=== PATIENT | female | born 1965 | race Caucasian/White ===

== ENCOUNTER 2025-01-23 13:13 | Emergency (ER) | payer OTHER, SELFPAY ==
--- NOTE | ~2025-01-23 | XR_ITS ---
EXAM/ PROCEDURE: XR hip LT 2V w AP pelvis - 01/23/2025 13:26 CDT HISTORY: 59 years old Female with jumped off 5ft ladder, landed on left hip- pain COMPARISON: None available TECHNIQUE: Three view(s) FINDINGS/ IMPRESSION: There are no fractures or dislocations.Joint space narrowing, subchondral sclerosis, subchondral cyst formation and osteophyte formation, compatible with mild osteoarthritis. Reviewed, dictated and finalized at location A.
--- OUTSIDE RECORDS SUMMARY | 2025-01-23 13:27 | XMS_ITS | Encounter Summary ---
Author Organization [facility] Healthcare Address [address] [place] [address] Care Team Providers Care Fountain Helper Name Role Phone Celeste Conde PT Unavailable Unavailabl e No, Physician Primary Care Provider [phone] Encounter Details Date Type Department Care Team (Late st Contact Info) Description 01/22/2025 Telephone [facility] Orthopedics and Sports Medicine 4 [facility] [address] [place] [address] Steve Tapia MD [address] [place] [address] [address] [place] [address] Social History Tobacco Use Types Packs/Day Years Used Date Smoking Tobacco: Former Cigarettes Smokeless Tobacco: Never Alcohol Use Standard Drinks/Week Comments Yes 0 (1 standard drink = 0.6 oz pur e alcohol) AUDIT-C Answer Date Recorded Q1: How often do you have a drink containing alc ohol? 2-3 times a week 10/01/2021 Q2: How many drinks containi ng alcohol do you have on a typical day when you are drinking? 1 or 2 10/01/2021 Q3: How often do you have si x or more drinks on one occasion? 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 States she had fallen and did not want to go to ED or Urgent Care. Called back adivising it would be February before we could get her in for a [place] appt and suggest she at least go to the Urgent Care for xrays and let us know when those had been done to review documented in this encounter Plan of Treatment Not on file documented as of this encounter Visit Diagnoses Not on filedocumented in this encounter Care Teams Fountain Helper Relationship Specialty Start Date End Date No, Physician PCP - General 11/06/24 Celeste Conde, PT Physical Therapist Physical Therapy 11/17/21 documented as of this encounter
--- OUTSIDE RECORDS SUMMARY | 2025-01-23 13:27 | XMS_ITS | Clinical Summary ---
Author Organization [facility] 1calendar Address [address] [place] [address] Care Team Providers Care Research And Development Director Name Role Phone Unavailable Primary Care Provider Unavailabl e Source Comments [facility] 1calendar,non-owned Affiliates and Associated Physician Practices is amultiple site organization consisting of ambulatory clinics and hospital sitesin [place], [place], [place] and [place]. This disclosure is being madepursuant to the Care Everywhere program and may not contain all information available regarding this patient. Last updated 18.[facility] 1calendar Allergies No known active allergies Medications * Be aware that medications may not be up to date on this document. Alwaysverify current medications with the patient. traZODone (Desyrel) 50 MG tablet 2 Active traMADol (Ultram) 50 MG tablet 2 Active multivitamins (One A Day) capsule Take 1 capsule by mouth once daily Active meloxicam (Mobic) 15 MG tablet 2 Active liraglutide (Victoza) 18 MG/3ML pen Inject 0.6 mg subcutaneously once daily 2 Active fluticasone propionate (Flonase) 50 MCG/ACT nasal spray Corry 2 sprays into the nose once daily as needed 2 Active escitalopram (Lexapro) 20 MG tablet 20 mg 2 Active cetirizine (ZyrTEC) 10 MG tablet 2 Active busPIRone (Buspar) 10 MG tablet Take 10 mg by mouth 2 times daily as needed 2 Active buPROPion SR 12hr (Wellbutrin-SR ) 150 MG tablet 2 Active atorvastatin (Lipitor) 40 MG tablet 2 Active Family History Medical History Relation Name Comments Cancer - Lung Sister Relation Name Status Comments Sister Social History Tobacco Use Types Packs/Day Years Used Date Smoking Tobacco: Every Day Cigarettes 0.3 40 Smokeless Tobacco: Never Alcohol Use Standard Drinks/Week Comments Yes 0 (1 standard drink = 0.6 oz pur e alcohol) OCASSIONLY Comments No Sex and Gender Information Value Date Recorded Sex Assigned at Not on file Legal Sex Female 3:47 PM CDT Gender Identity Not on file Sexual Orientation Not on file Last Filed Vital Signs Vital Sign Reading Time Taken Comments Blood Pressure 120/78 03/23/2022 10:30 AM CDT Pulse - - Temperature 36.7 C (98 F) 03/23/2022 10:30 AM CDT Respiratory Rate - - Oxygen Saturation - - Inhaled Oxygen Concentration - - Weight 76.2 kg (168 lb) 03/23/2022 10:30 AM CDT Height 157.5 cm (5' 2) 03/23/2022 10:30 AM CDT Body Mass Index 30.73 03/23/2022 10:30 AM CDT Plan of Treatment Health Maintenance Due Date Last Done Comments COLOGUARD (AGES 45-75) - COL ON CA SCREENING 1964 COLON MONITORING 1964 COLONOSCOPY - COLON CA SCREENING 1964 CT COLONOGRAPHY - COLON CA SCREENING 1964 Colorectal Cancer Screening 1964 FIT - COLON CA SCREENING 1964 FLEX SIG - COLON CA SCREENING 1964 MAMMOGRAM 1964 HIV SCREENING 12/30/1979 HEPATITIS C SCREENING 12/25/1982 DTAP/TDAP/TD VACCINES (1 - Tdap) 12/30/1983 PNEUMOCOCCAL VACCINE 50+ (1 of 2 - PCV) 12/30/1983 PAP SMEAR 1985 ZOSTER VACCINE (1 of 2) 2014 SCREENING FOR DIABETES 03/23/2022 COVID-19 VACCINE (1 - 2023-2 5 season) 2024 DEPRESSION SCREENING 06/07/2024 INFLUENZA VACCINE (#1) 2025 Respiratory Syncytial Virus (RSV) Vaccine Pt: or over 60 yrs (1 - 1-dose 75+ series) 12/30/2039 HEPATITIS B VACCINE Aged Out No longe r eligible based on patient's age to complete this topic HIB VACCINE Aged Out No longer eligi ble based on patient's age to complete this topic HPV VACCINE Aged Out No longer eligi ble based on patient's age to complete this topic MENINGOCOCCAL (Group B) VACC INE SHARED DECISION-MAKING Aged Out No longer eligibl e based on patient's age to complete this topic MENINGOCOCCAL GROUPS A/C/Y/W VACCINE Aged Out No longer eligible b ased on patient's age to complete this topic Insurance
--- OUTSIDE RECORDS SUMMARY | 2025-01-23 13:27 | XMS_ITS | Clinical Summary ---
Author Organization [facility] Address [address] [place] [address] Care Team Providers Care Surveillance Investigator Name Role Phone Celeste Conde PT Unavailable Unavailabl e No, Physician Primary Care Provider Allergies No known active allergies Medications atorvastatin (LIPITOR) 40 mg tablet take 1 tablet by oral route every day 0 0 5 Active Additional Information Patient not taking.Reported on 11/07/2024 escitalopram (LEXAPRO) 20 mg tabletIndicatio ns:Anxiety with Depression Take 1 tablet (20 mg total) by mouth every morning Active traZODone (DESYREL) 50 mg tabletIndicatio ns:insomnia associated with depression Take 1 tablet (50 mg total) by mouth nightly Active multivitamin capsuleIndicati ons:Vitamin Deficiency Prevention Take 1 capsule by mouth daily before breakfast Active Victoza 2-John 0.6 mg/0.1 mL (18 mg/3 mL) injectionIndica tions:type 2 diabetes mellitus Inject 0.6 mg under the skin daily before breakfast 2 Active fluticasone propionate (FLONASE) 50 mcg/actuation nasal spray Administer 2 sprays into each nostril daily as needed for allergies 2 Active cetirizine (ZyrTEC) 10 mg tablet Take 1 tablet (10 mg total) by mouth daily as needed for allergies 2 Active busPIRone (BUSPAR) 10 mg tablet Take 1 tablet (10 mg total) by mouth 2 (two) times a day as needed (anxiety) 2 Active traMADoL (ULTRAM) 50 mg tablet 2 Active pedi multivit no.16 w-fluoride (Multivitamins With Fluoride) 0.25 mg tablet,chewable Take 1 capsule by mouth daily Active loratadine (CLARITIN) 10 mg tablet Claritin 10 MG Oral Tablet QTY: 0 tablet Days: 0 Refills: 0 Written: 05/28/21 Patient Instructions: 1 Active meloxicam (MOBIC) 15 mg tablet 2 Active naproxen (NAPROSYN) 500 mg tablet Take 1 tablet (500 mg total) by mouth 2 (two) times a day with meals 14 tablet 3 Active Additional Information Patient not taking.Reported on 11/07/2024 buPROPion SR (WELLBUTRIN SR) 150 mg 12 hr tablet Take 1 tablet (150 mg total) by mouth 2 (two) times a day 4 Active Active Problems Problem Noted Date Diagnosed Date Closed fracture of right ankle 09/25/2021 Overview (09/25/2021): Added automatically from request for surgery [id number] Leg pain, lateral, right 08/11/2021 Encounters Date Type Department Care Team Description 01/22/2025 Telephone [facility] Orthopedics and Sports Medicine [address] [facility] [address] [place] [id number] Steve Tapia MD 11/08/2024 Results Follow-Up [facility] at [address] [place] [phone] Sho Corbin PA XR Wrist Left 2 Views 11/07/2024 3:45 PM CDT - 11/07/2024 11:59 PM CDT Hospital Encounter [facility] at [address] [address] Left wrist pain Discharge Disposition: Discharge to home or self care 11/07/2024 3:30 PM CDT Office Visit [facility] at [address] [place] [phone] Jerica Marquis NP Left wrist pain (Primary Dx) from Last 3 Months Surgical History Surgery Date Site/Laterality Comments OTHER SURGICAL HISTORY right leg SECTION 1981, 1989 CARPAL TUNNEL RELEASE 06/07/2015 - 06/06/2016 Right Carpal tunnel release ANKLE FRACTURE SURGERY 06/07/2003 - 06/06/2004 CARPAL TUNNEL RELEASE 06/07/2004 - 06/06/2005 CLAVICLE SURGERY 06/07/2004 - 06/06/2005 renner spur removal SECTION SHOULDER SURGERY Medical History Medical History Date Comments Hx Other Medical back pain; Comm ents: CAN 03/22/2015 - Hx Other Medical anemia; Comment s: CAN 03/22/2015 - Hx Other Medical depression; Com ments: CAN 03/22/2015 - Hx Other Medical high cholestero l; Comments: CAN 03/22/2015 - Anemia Depression Hypercholesteremia Anxiety Arthritis Allergic rhinitis Family History Medical History Relation Name Comments Heart disease Father Hypertension Father Arthritis Mother Heart disease Mother Kidney disease Mother Cancer Other 1 Family history of cancer; Heart disease Other 2 Family history of heart problems; Other Other 3 Family history of htn; Diabetes Other 4 Lung disease Other 4 Family history of lung problems; Mental illness Other 4 Alcohol abuse Other 5 Family history of Alcoholism; Arthritis Other 5 Bone cancer Other 5 Heart disease Other 5 Lung cancer Other 5 Cancer Sister Anesthesia problems Neg Hx Relation Name Status Comments Father Mother Other 1 Other 2 Other 3 Other 4 Other 5 Sister Social History Tobacco Use Types Packs/Day Years Used Date Smoking Tobacco: Former Cigarettes Smokeless Tobacco: Never Tobacco Cessation:Counseling Given: Not Answered Alcohol Use Standard Drinks/Week Comments Yes 0 [...] on file 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 Gender Identity Not on file Sexual Orientation Not on file 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 Not on file Not on file Obstetrics History Last Filed Vital Signs Vital Sign Reading Time Taken Comments Blood Pressure 122/76 11/07/2024 3:30 PM CDT Pulse 95 11/07/2024 3:30 PM CDT Temperature 37.1 C (98.7 F) 11/07/2024 3:30 PM CDT Respiratory Rate 16 11/07/2024 3:30 PM CDT Oxygen Saturation 96% 11/07/2024 3:30 PM CDT Inhaled Oxygen Concentration - - Weight 70.3 kg (155 lb) 11/07/2024 3:30 PM CDT Height 157.5 cm (5' 2) 11/07/2024 3:30 PM CDT Body Mass Index 28.35 11/07/2024 3:30 PM CDT Plan of Treatment Health Maintenance Due Date Last Done Comments Breast Cancer Screening-Mammogram 1964 Cervical Cancer Screening 1964 Colon Cancer Screening-Colonoscopy 1964 Depression Screening 1964 Hepatitis C Screening 1964 Regular Well Visit/Exam 18-64 1982 Zoster Vaccine (1 of 2) 2014 Influenza Vaccine (#1) 2025 , 05/27/2020, 02/27/2019, Additional history exists DTaP/Tdap/Td Vaccine (2 - Td or Tdap) 11/18/2025 11/19/2015 Hepatitis B Screening Completed 03/18/2007 Pneumococcal vaccine <65 Aged Out No longer eligible based on patient's age to complete this topic Medical Devices Implanted Type Area Nurse Educator Device Identifier Shelf Expiration Date Model / Serial / Lot [employer] 91mm 5 Hole Lock Modular Low Profile Fibula Right Distal Plate [id number] - [id number] Implanted:Qty: 1 on 10/01/2021 by Cuco Henderson MD at [facility] Right: Ankle [employer] [id number] / / [employer] Low Profile Screws 2.7mm 10mm Modular Solid Hexalobe Lock Ankle [id number]-[id number]-10 - [id number] Implanted:Qty: 1 on 10/01/2021 by Cuco Henderson MD at [facility] Right: Ankle [employer] [id number]-8827L-1 0 / / [employer] Low Profile Screws 2.7mm 14mm Modular Solid Hexalobe Lock Ankle Ar-[id number]-14 - [id number] Implanted:Qty: 3 on 10/01/2021 by Cuco Henderson MD at [facility] Right: Ankle [employer] [id number] AR-8827L-1 4 / / [employer] Low Profile Screws 2.7mm 12mm Modular Solid Hexalobe Lock Ankle Ar-[id number]-12 - [id number] Implanted:Qty: 1 on 10/01/2021 by Cuco Henderson MD at [facility] Right: Ankle [employer] [id number] AR-8827L-1 2 / / [employer] Low Profile Screws 2.7mm 22mm Modular Solid Hexalobe Self Tap Ar-8827-22 - [id number] Implanted:Qty: 1 on 10/01/2021 by Cuco Henderson MD at [facility] Right: Ankle [employer] [id number] AR-8827-22 / / [employer] Low Profile Screws 3.5mm 12mm Modular Solid Hexalobe Self Tap Ar-8835-12 - [id number] Implanted:Qty: 2 on 10/01/2021 by Cuco Henderson MD at [facility] Right: Ankle [employer] [id number] AR-8835-12 / / [employer] Low Profile Screws 3.5mm 14mm Modular Solid Hexalobe Self Tap Ar-8835-14 - [id number] Implanted:Qty: 1 on 10/01/2021 by Cuco Henderson MD at [facility] Right: Ankle [employer] [id number] AR-8835-14 / / [employer] Low Profile Screws 3.5mm 50mm Self Drill Solid Modular Ankle Ar-8835-50 - [id number] Implanted:Qty: 1 on 10/01/2021 by Cuco Henderson MD at [facility] Right: Ankle [employer] [id number] AR-8835-50 / / Procedures Procedure Name Priority Date/Time Associated Diagnosis Comments XR WRIST LEFT 2 VIEWS Schedule TIMOTHY, Read TIMOTHY (Appt Today, Awaiting Results) 11/07/2024 4:04 PM CDT Left wrist pain from Last 3 Months Results * XR Wrist Left 2 Views (11/07/2024 4:04 PM CDT) Anatomical Region Laterality Modality Upper Extremities, Wrist Left Compute d Radiography 11/07/2024 10:0 1 PM CDT Narrative 11/07/2024 10:01 PM CDT EXAM DESCRIPTION: XR WRIST LEFT 2 VIEWS REASON FOR STUDY: pain Left lateral and posterior wrist pain x 1 month Pt unsure if she injured it No surgeries TECHNIQUE: There are 2 radiographic view(s) of the left wrist . COMPARISON: No prior. FINDINGS: Normal mineralization. No fracture or dislocation. Luhq-lc-huiufjyz osteoarthritis 1st carpometacarpal joint. Soft tissues are unremarkable. IMPRESSION: No acute fracture. Txfj-qg-wlueuvar osteoarthritis 1st carpometacarpal joint. THIS IS AN ELECTRONICALLY VERIFIED FINAL REPORT 11/07/2024 10:01 PM - Electronically signed by Jostin Rodriguez M.D. MJ: ROSEY Report ID: [id number] Reading Location: [id number] Procedure Note Jostin Rodriguez MD - 11/07/2024 EXAM DESCRIPTION: XR WRIST LEFT 2 VIEWS REASON FOR STUDY: pain Left lateral and posterior wrist pain x 1 month Pt unsure if she injuredit No surgeries TECHNIQUE: There are 2 radiographic view(s) of the left wrist . COMPARISON: No prior. FINDINGS: Normal mineralization. No fracture or dislocation. Txqg-vf-ezxspzwh osteoarthritis 1st carpometacarpal joint. Soft tissues are unremarkable. IMPRESSION: No acute fracture. Kncr-uh-foyssxin osteoarthritis 1st carpometacarpal joint. THIS IS AN ELECTRONICALLY VERIFIED FINAL REPORT 11/07/2024 10:01 PM - Electronically signed by Jostin Rodriguez M.D. MJ: ROSEY Report ID: [id number] Reading Location: [place] [address] Jerica Adalgisa Benitez FLIGHT CONTROL SPECIALIST IMG XR PROCEDURES Fin al Result from Last 3 Months Insurance [facility] CHOICE PLUS Care Teams Surveillance Investigator Relationship Specialty Start Date End Date No, Physician PCP - General 11/06/24 Celeste Conde, PT Physical Therapist Physical Therapy 11/17/21
--- OUTSIDE RECORDS SUMMARY | 2025-01-23 13:27 | XMS_ITS | Clinical Summary ---
Author Organization [facility] Address [address] [place] [address] Phone Care Team Providers Care Group Manager Name Role Phone Damari Garcia MD Primary Care Provider [phone] Allergies No known active allergies Medications buPROPion SR (WELLBUTRIN SR) 150 MG TABLET SR 12 HR Take 150 mg by mouth 2 times daily. Active atorvastatin (LIPITOR) 40 MG Tablet Take 40 mg by mouth daily. Active escitalopram (LEXAPRO) 10 MG Tablet Take 10 mg by mouth daily. Active traMADol (ULTRAM) 50 MG Tablet Take 1-2 Tabs by mouth every 8 hours as needed for Moderate or more severe pain. 15 Tab 11/16/2018 Active traZODone (DESYREL) 50 MG Tablet 04/23/2022 Active Social History Tobacco Use Types Packs/Day Years Used Date Smoking Tobacco: Every Day Cigarettes Smokeless Tobacco: Never Tobacco Cessation:Ready to Q uit: Not Asked; Counseling Given: Not Answered Comments No Sex and Gender Information Value Date Recorded Sex Assigned at Not on file Legal Sex Female 12:27 AM CDT Gender Identity Not on file Sexual Orientation Not on file Last Filed Vital Signs Vital Sign Reading Time Taken Comments Blood Pressure 130/64 06/09/2022 9:46 AM DISC JOCKEY Pulse 73 06/09/2022 9:46 AM DISC JOCKEY Temperature 36.3 C (97.4 F) 11/16/2018 12:02 PM CDT Respiratory Rate 20 06/09/2022 9:46 AM DISC JOCKEY Oxygen Saturation 95% 06/09/2022 9:46 AM DISC JOCKEY Inhaled Oxygen Concentration - - Weight 72.6 kg (160 lb) 11/16/2018 12:02 PM CDT Height 157.5 cm (5' 2) 11/16/2018 12:02 PM CDT Body Mass Index 29.26 11/16/2018 12:02 PM CDT Plan of Treatment Health Maintenance Due Date Last Done Comments Hepatitis C Virus (HCV) Screening 1964 Mammogram 1964 Pap Smear 1985 Cervical Cancer Screening (CCS) 1994 HPV/Cotest 1994 Hepatitis B Immunization (2 of 3 - 19+ 3-dose series) 04/15/2007 03/18/2007 Cologuard 2009 Colonoscopy 2009 Colorectal Cancer Screening 2009 Immunochemical Fecal Occult Blood 2009 Pneumococcal Immunization (50+ years) (1 of 1 - PCV) 2014 Zoster Immunization (1 of 2) 2014 SARS-COV-2 Immunization (1 - ) 02/06/2024 Influenza Immunization (#1) 02/05/202507/2021, 04/17/2021, 05/27/2020, Additional history exists Respiratory Syncytial Virus (RSV) Immunization (Adult) (1 - 1-dose 75+ series) 12/30/2039 DTaP/Tdap/Td Immunization Discontinued 11/19/2015 TdaP Immunization Completed 11/19/2015 Human Papillomavirus (HPV) Immunization Aged Out No longer eligible based on patient's age to complete this topic Meningococcal Immunization (ACWY) Aged Out No longer eligible based on patient's age to complete this topic Rotavirus Immunization Aged Out No lo nger eligible based on patient's age to complete this topic Insurance MEDICAID [employer] Care Teams Group Manager Relationship Specialty Start Date End Date Damari Garcia MD [address] [place] [address] PCP - General Internal Medicine 11/16/18
[2025-01-23 13:30] VITALS: BP 130/92; PULSE 94; RESP 18; TEMP 36.3; O2SAT 98
--- NOTE | 2025-01-23 13:32 | ED.LOWEXIN ---
HPI - Extremity Injury (Lower) General Chief Complaint: Extremity Injury, Lower Stated Complaint: Hip Pain Fell off ladder Time Seen by Provider: 01/23/25 13:15 Source: patient Mode of arrival: ambulatory Limitations: no limitations History of Present Illness HPI Narrative: Christen is a 59-year-old female patient presenting to the clinic today with complaints of left hip pain after jumping off a 5 ft ladder when it started to wobble. She stated this occurred on Wednesday. She took ibuprofen for pain. Has taken a total of 2 doses of 800 mg yesterday. Has not taken anything for pain today. Has sharp pain with lifting of the left leg, ambulating, and going from a sitting to a standing position pain is to the posterior lateral hip. Rates pain 8/10. Denies any saddle anesthesia or loss of bowel or bladder. Related Data Allergies Allergy/AdvReac Type Severity Reaction Status Date / Time No Known Allergies Allergy Verified 01/23/25 13:34 Review of Systems Review of Systems: Pertinent positives per HPI. Patient denies any fever, chills, rash, headache, visual changes, dizziness, cough, runny nose, sore throat, shortness of breath, chest pain, palpitations, nausea, vomiting, diarrhea, constipation, abdominal pain, or any urinary issues. PMFSH Comments At the time of my signature, I reviewed and agree with the nursing past medical, surgical, social, and family history. There is no relevant family history pertinent to the patient complaint. Exam Narrative: General: Well-developed, well nourished, in no apparent distress Head: Normocephalic, atraumatic. Cardio: Regular rate and rhythm, s1 and s2 normal, no murmur appreciated. Resp: Clear to auscultation bilaterally, no rhonchi, rales, wheezing or rubs. Musculoskeletal: No deformity, no bruising or swelling noted, tender to palpation over the left lateral greater trochanter and posterior hip joint, pain to the left hip with stepping up were going from a sitting to a standing position mild pain with internal and external rotation, grossly normal range of motion, muscle strength strong and equal, peripheral pulse strong, no edema, no cyanosis, limping gait and station Course Course Emergency Course: Portions of this record may have been created with voice recognition software. Level of Care: Express Care Visit Vital Signs Vital signs: Vital Signs Temperature 36.3 C L 01/23/25 13:30 Pulse Rate 94 01/23/25 13:30 Respiratory Rate 18 01/23/25 13:30 Blood Pressure 130/92 H 01/23/25 13:30 Pulse Oximetry 98 01/23/25 13:30 Oxygen Delivery Room Air 01/23/25 13:30 Temperature 36.3 C L 01/23/25 13:30 Pulse Rate 94 01/23/25 13:30 Respiratory Rate 18 01/23/25 13:30 Blood Pressure 130/92 H 01/23/25 13:30 Pulse Oximetry 98 01/23/25 13:30 Oxygen Delivery Room Air 01/23/25 13:30 Vital signs reviewed MDM - Extremity Injury (Lower) MDM Narrative Medical decision making narrative: At the time of visit patient is resting comfortably on the exam table. Patient appears to be nontoxic. Complaints of left hip pain after jumping off a 5 ft ladder when it started to wobble. She stated this occurred on Wednesday. She took ibuprofen for pain. Has taken a total of 2 doses of 800 mg yesterday. Has not taken anything for pain today. Has sharp pain with lifting of the left leg, ambulating, and going from a sitting to a standing position pain is to the posterior lateral hip. Rates pain 8/10. Denies any saddle anesthesia or loss of bowel or bladder. On exam patient has pain over the lateral and posterior left hip joint, pain with stepping up on the left foot as well as pain with going from a sitting to a standing position, mild pain with internal and external rotation. X-ray of the left hip and pelvis were ordered. Toradol injection 60 mg was ordered. Medications: Toradol 60 mg IM given in the clinic today for pain Diagnostics: X-ray of the left hip was performed and was negative for any acute fracture or malalignment. Does show some mild osteoarthritis. Plan: I suspect patient has acute hip pains, hip contusion, and mild osteoarthritis. Work note was given. Supportive measures were discussed with the patient and they voiced understanding discharge instructions and agrees to treatment plan. Return precautions reviewed Differential Diagnosis Differential diagnosis: Likely fracture of hip and other (Pelvic fracture, hip bursitis, hip contusion, hip sprain) Discharge Plan Discharge Clinical Impression: Osteoarthritis of left hip Qualifiers: Osteoarthritis type: unspecified Qualified Code(s): M16.12 - Unilateral primary osteoarthritis, left hip Acute hip pain Qualifiers: Laterality: left Qualified Code(s): M25.552 - Pain in left hip Contusion of hip Qualifiers: Encounter type: initial encounter Laterality: left Qualified Code(s): S70.02XA - Contusion of left hip, initial encounter Patient Disposition: Home Condition: Stable Instructions: Antibiotic Form, Osteoarthritis (ED), Contusion in Adults (ED), Hip Pain (ED) Additional Instructions: X-ray shows no sign of fracture or malalignment of the left hip-does show some mild osteoarthritis. Toradol 60 mg IM given in the clinic today. Do not take any Motrin, Aleve, aspirin, or ibuprofen for 8 hours Take Medrol Dosepak as prescribed Apply ice to the affected area for 20 minutes at a time-20 minutes on/20 minutes off May take Tylenol/ibuprofen for pain as directed per bottle old instructions Follow-up with your primary care doctor in 5-7 days if symptoms persist Go to the emergency room if symptoms worsen Patient Language: Moldovan Prescriptions: New methylprednisolone [Medrol (John)] 4 mg tablets,dose pack See Rx Instructions PO .COMPLEX Qty: 21 0RF Rx Instructions: orally per package directions Follow-up/Referrals: PHYSICIAN,BATTALION CHIEF [Primary Care Provider, Internal Medicine] Stand Alone Forms: Work/School Release IP Time of Disposition: 14:08 Quality NIHSS Nursing Documentation ED NIHSS nursing documentation: reviewed/agree
[2025-01-23] MEDS: KETOROLAC (*BKC) 60 MG/2 ML VIAL IM (14:11)
== END 2025-01-23 14:34 | disposition home or self-care (01) ==
PROVIDERS: Emergency Provider Nurse Practitioner Family
DX: M16.12 Unilateral primary osteoarthritis, left hip (principal); M25.552 Pain in left hip; S70.02XA Contusion of left hip, initial encounter; W11.XXXA Fall on and from ladder, initial encounter
CPT/HCPCS: 73502; 96372; 99203; G0463; J1885

== ENCOUNTER 2025-01-27 10:24 | Emergency (ER) | payer OTHER, SELFPAY ==
--- OUTSIDE RECORDS SUMMARY | 2025-01-27 10:36 | XMS_ITS | Clinical Summary ---
Author Organization [facility] Address [address] [place] [address] Care Team Providers Care Clam Grower Name Role Phone Unavailable Primary Care Provider Unavailabl e Source Comments [facility],non-owned Affiliates and Associated Physician Practices is amultiple site organization consisting of ambulatory clinics and hospital sitesin [place], [place], [place] and [place]. This disclosure is being madepursuant to the Care Everywhere program and may not contain all information available regarding this patient. Last updated 18.[facility] Allergies No known active allergies Medications * [...] fluticasone propionate (Flonase) 50 MCG/ACT nasal spray Cherry Log 2 sprays into the nose once daily [...]
--- OUTSIDE RECORDS SUMMARY | 2025-01-27 10:36 | XMS_ITS | Clinical Summary ---
Author Organization [facility] Address [address] [place] [address] Care Team Providers Care Foreign Languages Professor Name Role Phone Celeste Conde PT Unavailable Unavailabl e No, Physician Primary Care Provider [phone] Allergies No known active allergies Medications atorvastatin [...] (09/25/2021): Added automatically from request for surgery [id number] Leg pain, lateral, right 08/11/2021 Encounters Date Type Department Care Team Description 01/22/2025 Telephone [facility] Orthopedics and Sports Medicine [address] [place] [phone] Steve Tapia MD 11/08/2024 Results Follow-Up [facility] at [address] [place] [phone] Sho Corbin PA XR Wrist Left 2 Views 11/07/2024 3:45 PM CDT - 11/07/2024 11:59 PM CDT Hospital Encounter [facility]iology - Outpatient Center at [address] [address] Left wrist pain Discharge Disposition: Discharge to home or self care 11/07/2024 3:30 PM CDT Office Visit [facility] at [address] [place] [phone] Jerica Marquis NP Left wrist pain [...] on file Legal Sex Female 5:37 PM COMMUNITY RELATIONS REP Gender Identity Not on file Sexual Orientation Not on file 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 on file Not on file Not [...] this topic Medical Devices Implanted Type Area Director Work Device Identifier Shelf Expiration Date Model / Serial / Lot [employer] 91mm 5 Hole Lock Modular Low Profile Fibula Right Distal Plate [id number] - [id number] Implanted:Qty: 1 on 10/01/2021 by Cuco Henderson MD at [facility] Right: Ankle [employer] [id number] / / [employer] Low Profile Screws 2.7mm 10mm Modular Solid Hexalobe Lock Ankle Ar-[id number]-10 - [id number] Implanted:Qty: 1 on 10/01/2021 by Cuco Henderson MD at [facility] Right: Ankle [employer] [id number]-8827L-1 0 / / [employer] Low Profile Screws 2.7mm 14mm Modular Solid Hexalobe Lock Ankle Ar-[id number]-14 - [id number] Implanted:Qty: 3 on 10/01/2021 by Cuco Henderson MD at [facility] Right: Ankle [employer] [id number] AR-8827L-1 4 / / [employer] Low Profile Screws 2.7mm 12mm Modular Solid Hexalobe Lock Ankle Ar-[id number]-12 - [id number] Implanted:Qty: 1 on 10/01/2021 by Cuco Henderson MD at [facility] Right: Ankle [employer] [id number] AR-8827L-1 2 / / [employer] Low Profile Screws 2.7mm 22mm Modular Solid Hexalobe Self Tap Ar-8827-22 - [id number] Implanted:Qty: 1 on 10/01/2021 by Cuco Henderson MD at [facility] Right: Ankle [employer] [id number] AR-8827-22 / / [employer] Low Profile Screws 3.5mm 12mm Modular Solid Hexalobe Self Tap Ar-8835-12 - [id number] Implanted:Qty: 2 on 10/01/2021 by Cuco Henderson MD at [facility] Right: Ankle [employer] [id number] AR-8835-12 / / [employer] Low Profile Screws 3.5mm 14mm Modular Solid Hexalobe Self Tap Ar-8835-14 - [id number] Implanted:Qty: 1 on 10/01/2021 by Cuco Henderson MD at [facility] Right: Ankle [employer] [id number] AR-8835-14 / / [employer] Low Profile Screws 3.5mm 50mm Self Drill Solid Modular Ankle Ar-8835-50 - [id number] Implanted:Qty: 1 on 10/01/2021 by Cuco Henderson MD at [facility] Right: Ankle [employer] [id number] AR-8835-50 / / Procedures Procedure Name Priority [...] FINDINGS: Normal mineralization. No fracture or dislocation. Nucf-nv-qtqupqox osteoarthritis 1st carpometacarpal joint. Soft tissues are unremarkable. IMPRESSION: No acute fracture. Bxkn-zl-puuvaiyz osteoarthritis 1st carpometacarpal joint. THIS IS AN ELECTRONICALLY VERIFIED FINAL REPORT 11/07/2024 10:01 PM - Electronically signed by Jostin Rodriguez M.D. MJ: ROSEY Report ID: [id number] Reading Location: [id number] Procedure Note Jostin Rodriguez MD - 11/07/2024 EXAM DESCRIPTION: XR WRIST LEFT 2 VIEWS REASON FOR STUDY: pain Left lateral and posterior wrist pain x 1 month Pt unsure if she injuredit No surgeries TECHNIQUE: There are 2 radiographic view(s) of the left wrist . COMPARISON: No prior. FINDINGS: Normal mineralization. No fracture or dislocation. Wkcz-dl-mgbpimds osteoarthritis 1st carpometacarpal joint. Soft tissues are unremarkable. IMPRESSION: No acute fracture. Emfq-ws-lqjvtphx osteoarthritis 1st carpometacarpal joint. THIS IS AN ELECTRONICALLY VERIFIED FINAL REPORT 11/07/2024 10:01 PM - Electronically signed by Jostin Rodriguez M.D. MJ: ROSEY Report ID: [id number] Reading Location: [place] [address] Jerica Adalgisa Benitez MANAGEMENT COORDINATOR IMG XR PROCEDURES Fin al Result from Last 3 Months Insurance [facility] Care Teams Foreign Languages Professor Relationship Specialty Start Date End Date No, Physician PCP - General 11/06/24 Celeste Conde, PT Physical Therapist Physical Therapy 11/17/21
--- OUTSIDE RECORDS SUMMARY | 2025-01-27 10:36 | XMS_ITS | Clinical Summary ---
Author Organization [facility] Address [address] [place] [address] Phone Care Team Providers Care Product Picker Name Role Phone Damari Garcia MD Primary Care Provider [phone] Allergies No known active allergies Medications buPROPion [...] Comments Blood Pressure 130/64 06/09/2022 9:46 AM EBD TEACHER Pulse 73 06/09/2022 9:46 AM EBD TEACHER Temperature 36.3 C (97.4 F) 11/16/2018 12:02 PM CDT Respiratory Rate 20 06/09/2022 9:46 AM EBD TEACHER Oxygen Saturation 95% 06/09/2022 9:46 AM EBD TEACHER Inhaled Oxygen Concentration - - Weight 72.6 [...] Insurance MEDICAID [employer] Care Teams Product Picker Relationship Specialty Start Date End Date Damari Garcia MD [address] [place] [address] PCP - General Internal Medicine 11/16/18
[2025-01-27 10:38] VITALS: BP 146/98; PULSE 80; RESP 20; TEMP 36.6; O2SAT 98
--- NOTE | 2025-01-27 11:06 | ED_ITS ---
HPI - Extremity Injury (Lower) General Chief Complaint: Extremity Injury, Lower Stated Complaint: left hip Time Seen by Provider: 01/27/25 11:03 Source: patient and RN notes reviewed Mode of arrival: ambulatory Limitations: no limitations History of Present Illness HPI Narrative: 59-year-old female presents with concern of for left hip pain. Reports she had an injury last week when she jumped off a ladder that was wobbly. Reports she was seen and had a normal x-ray. She was given a steroid pack but is not had relief. She has been using a cane for mobility. She is trying to rest. She is concerned about going back to work. MD complaint: hip injury Related Data Allergies Allergy/AdvReac Type Severity Reaction Status Date / Time No Known Allergies Allergy Verified 01/23/25 13:34 Review of Systems Review of Systems: CONSTITUTIONAL: Denies malaise, chills, sweats, or fever. SKIN: Denies rash or itching, open skin, laceration, abrasion, redness, warmth, swelling. MUSCULOSKELETAL: Reports left hip pain NEUROLOGIC: Denies numbness, weakness All systems reviewed & are unremarkable except as noted in HPI and below PMFSH Comments At time of signature, agree with nursing past medical, surgical, social and family history. There is no relevant family history pertinent to the presenting complaint Exam Narrative: GENERAL: Well-appearing, well-nourished, and in no acute distress. HEAD: Normocephalic, atraumatic. EYES: PERRLA, conjunctivae clear NECK: Supple. CHEST: Speaks in full sentences. No respiratory distress. HEART: Regular rate and rhythm. Normal and equal peripheral pulses. EXTREMITIES: No deformity, no swelling noted, pain to the left hip with stepping up were going from a sitting to a standing position mild pain with internal and external rotation, grossly normal range of motion, muscle strength strong and equal, peripheral pulse strong, no edema, no cyanosis, limping gait SKIN: Warm, dry, no rash. NEURO: Alert and oriented x3. PSYCH: Normal mood and affect Course Course Emergency Course: Patient is aware of diagnosis, understands and agrees to treatment plan. Anticipatory guidance given. Patient agrees to follow-up as directed and is aware of reasons to seek care at the emergency department. Portions of this record may have been created with voice recognition software Level of Care: Express Care Visit Vital Signs Vital signs: Vital Signs Temperature 97.9 F 01/27/25 10:38 Pulse Rate 80 01/27/25 10:38 Respiratory Rate 20 01/27/25 10:38 Blood Pressure 146/98 H 01/27/25 10:38 Pulse Oximetry 98 01/27/25 10:38 Oxygen Delivery Room Air 01/27/25 10:38 Temperature 97.9 F 01/27/25 10:38 Pulse Rate 80 01/27/25 10:38 Respiratory Rate 20 01/27/25 10:38 Blood Pressure 146/98 H 01/27/25 10:38 Pulse Oximetry 98 01/27/25 10:38 Oxygen Delivery Room Air 01/27/25 10:38 Reviewed. MDM - Extremity Injury (Lower) MDM Narrative Medical decision making narrative: The patient was evaluated by myself in the [facility] care. History is obtained from patient who is an independent historian and physical exam was performed.? Available medical records were reviewed at this time. ? Exam findings show no acute concerns or changes; patient is non-toxic appearing and is in no distress. Patient is appropriate for outpatient treatment and follow-up. ? I have evaluated and discussed social determinants of health with the patient that could potentially impact subsequent diagnosis and treatment plans. ? Patients injury and pain is consistent with musculoskeletal etiology. No signs of neurological or vascular compromise on exam. Compartments and tissues are soft without signs of compartment syndrome. Pain is felt appropriate for further evaluation on an outpatient basis. Critical Care Time Critical Care Time Critical Care Time: No Discharge Plan Discharge Clinical Impression: Acute hip pain Patient Disposition: Home Condition: Stable Instructions: Hip Pain (ED) Additional Instructions: Avoid activities that cause pain until the pain subsides. Ice to the area 20-30 minutes 4-6 times a day Tylenol for lesser pain When your steroid pack is complete, take Ibuprofen regularly as needed for inflammation Follow up with Orthopedics for further evaluation If the condition worsens with numbness, tingling, decrease sensation with weakness seek treatment in the emergency room immediately. Patient Language: Yi Prescriptions: New cyclobenzaprine 10 mg tablet 10 mg PO TID PRN (Reason: muscle spasm) Qty: 20 0RF No Action methylprednisolone [Medrol (John)] 4 mg tablets,dose pack See Rx Instructions PO .COMPLEX Qty: 21 0RF Rx Instructions: orally per package directions Follow-up/Referrals: PHYSICIAN,COMMERCIAL GREEN BUILDING ARCHITECT [Primary Care Provider, Internal Medicine] Efrain Edge MD [Physician, Orthopedics] Referral Note: Hip pain Stand Alone Forms: Work/School Release IP Time of Disposition: 11:11
== END 2025-01-27 11:19 | disposition home or self-care (01) ==
PROVIDERS: Emergency Provider Nurse Practitioner
DX: M25.552 Pain in left hip (principal)
CPT/HCPCS: 99213; G0463